=== PATIENT | male | born 1930 | race Caucasian/White ===

== ENCOUNTER 2017-11-27 09:16 | Inpatient (IN) | payer MEDICARE, OTHER ==
[~2017-11-27] VITALS: Ht 170.2 cm; Wt 88.5 kg
[2017-11-27 09:18] VITALS: BP 213/113
[2017-11-27] MEDS ORDERED: FLAXSEED1000 MG PO (09:27)
[2017-11-27] MEDS ORDERED: LASIX 20 MG TAB20 MG PO (09:28)
[2017-11-27] MEDS ORDERED: OMEPRAZOLE 20 M20 M1 PO (09:28)
[2017-11-27] MEDS ORDERED: POTASSIUM20 PO (09:28)
[2017-11-27] MEDS ORDERED: MELATONIN3 MG PO (09:28)
[2017-11-27] MEDS ORDERED: TUMS PO ×2 (09:29→09:30)
[2017-11-27] MEDS ORDERED: PROBIOTIC1 EAC1 PO (09:29)
[2017-11-27] MEDS ORDERED: TRAZODONE HCL50 MG PO (09:29)
[2017-11-27] MEDS ORDERED: NORCO 10-325 T1 EACH PO (09:31)
[2017-11-27] MEDS ORDERED: CYCLOBENZAPRINE5 MG PO (09:31)
[2017-11-27] MEDS ORDERED: IBUPROFEN 400400 M2 PO (09:31)
[2017-11-27] MEDS ORDERED: ZOFRAN ODT4 MG PO (09:32)
[2017-11-27] MEDS ORDERED: MIRALAX17 GM PO (09:32)
[2017-11-27] MEDS ORDERED: IPRAT-ALBUT 0.5-3 ML INH (09:32)
[2017-11-27] MEDS ORDERED: ROBAFEN100 MG/5 M PO (09:33)
[2017-11-27 10:09] LABS: ABSOLUTE BASOPHILS 0.1 thou/uL (0.0-0.2); ABSOLUTE MONOCYTES 0.6 thou/uL (0.0-1.2); ABSOLUTE NEUTROPHILS 9.5 thou/uL (1.6-8.1); EOSINOPHILS 0.1 %; HEMATOCRIT 40.7 % (42.0-52.0); WBC 11.3 thou/uL (4.0-11.0)
[2017-11-27 10:10] LABS: ABSOLUTE LYMPHOCYTES 1.2 thou/uL (0.8-5.3); BASOPHILS 0.6 %; HEMOGLOBIN 13.4 gm/dL (14.0-18.0); LYMPHOCYTES 10.2 %; MCH 29.4 pg (26.0-34.0); MCV 89.3 fL (80.0-100.0); MONOCYTES 5.2 %; NUCLEATED RBCS 0 /100WBC; PLATELET COUNT* 329 thou/uL (150-400); POLYS 83.9 %; RBC 4.56 mil/uL (4.50-6.00); RDW-CV 16.1 % (10.5-14.5)
[2017-11-27 10:14] LABS: ANION GAP 10 mmol/L (7-16); BUN 18 mg/dL (7-18); CALCIUM 8.6 mg/dL (8.5-10.1); CHLORIDE 103 mmol/L (98-107); CO2 27 mmol/L (21-32); CREATININE 0.7 mg/dL (0.6-1.3); GLUCOSE 138 mg/dL (70-99); POTASSIUM 3.5 mmol/L (3.5-5.1); SODIUM 140 mmol/L (136-145)
[2017-11-27 10:21] LABS: ALKALINE PHOSPHATASE 65 U/L (46-116); LIPASE 148 U/L (73-393); SGOT 19 U/L (15-37); SGPT 19 U/L (30-65); TOTAL BILIRUBIN 0.2 mg/dL (<0.1-1.0); TOTAL PROTEIN 7.2 g/dL (6.4-8.2); TROPONIN-I LEVEL <0.06 ng/mL (<0.06)
[2017-11-27 11:18] LABS: URINE BILIRUBIN NEGATIVE (Negative); URINE BLOOD NEGATIVE (Negative); URINE CLARITY CLEAR; URINE COLOR YELLOW; URINE GLUCOSE-RANDOM NEGATIVE (Negative); URINE KETONES NEGATIVE (Negative); URINE LEUKOCYTES-REFLEX NEGATIVE (Negative); URINE NITRITE-REFLEX NEGATIVE (Negative); URINE PROTEIN NEGATIVE (Negative); URINE UROBILINOGEN 0.2 E.U./dl (0.2-1.0)
[2017-11-27 12:18] LABS: BE -1.3 mmol/L (-2 to +3); HCO3 22.7 mmol/L (22.0-26.0); PO2 65.1 mmHg (75.0-100.0); pH 7.417 (7.340-7.450)
[2017-11-27 13:16] VITALS: BP 151/97
[2017-11-27 13:41] VITALS: BP 155/92
[2017-11-27 20:05] VITALS: BP 152/66
[2017-11-27 23:53] VITALS: BP 79/42
[2017-11-28 04:16] VITALS: BP 98/55
[2017-11-28 07:45] VITALS: BP 90/47
--- NOTE | 2017-11-28 12:03 | EKG ---
[facility] [address] [place] [address] ELECTROCARDIOGRAM REPORT Name: MARCO HAGAN MICHAEL Room: [address] IN [facility].#: [id number] Admission: 11/27/17 Attend Phys: Jesus Infante Discharge: Date of : 32 Report #: [id number] THIS REPORT FOR: //name// [facility] ED Test Date: 2017-11-27 Test Time: 09:56:53 Pat Name: MARCO HAGAN Department: Room: Gender: M [employer] Lab[employer]: : 1930 Requested By: Jeanna Mendieta Order Number: [id number] MD: Donovan Lan Measurements Intervals [place] Rate: 56 P: 6 IA: 187 QRS: -59 QRSD: 156 T: -17 QT: 483 QTc: 467 Interpretive Statements Sinus rhythm Atrial premature complex RBBB and LAFB Baseline wander in lead(s) V6 No previous ECG available for comparison Electronically Signed On 11-28-2017 12:03:19 CDT by Donovan Lan [email or web address] <ELECTRONICALLY SIGNED> By: Donovan Lan MD, [facility] 11/28/17 [phone] Donovan Lan MD, [facility] /EPI
[2017-11-28 16:08] VITALS: BP 103/57
[2017-11-28 20:15] VITALS: BP 96/44
[2017-11-29 04:25] VITALS: BP 122/62
[2017-11-29 08:49] VITALS: BP 131/70
[2017-11-29 16:00] VITALS: BP 136/62
[2017-11-30 00:28] VITALS: BP 125/63
[2017-11-30 01:57] VITALS: BP 125/63
[2017-11-30 04:59] LABS: HEMATOCRIT 32.8 % (42.0-52.0); MCH 29.7 pg (26.0-34.0); MCHC 33.4 g/dL (28.0-37.0); MCV 88.7 fL (80.0-100.0); MPV 7.9 fl. (7.2-11.1); RBC 3.7 mil/uL (4.50-6.00); RDW-CV 15.5 % (10.5-14.5); WBC 8.8 thou/uL (4.0-11.0)
[2017-11-30 05:15] LABS: ALBUMIN 1.7 g/dL (3.4-5.0); CALCIUM 7.6 mg/dL (8.5-10.1); CREATININE 0.6 mg/dL (0.6-1.3); MAGNESIUM 1.5 mg/dL (1.8-2.4); PHOSPHORUS* 2.3 mg/dL (2.5-4.9); TOTAL BILIRUBIN 0.3 mg/dL (<0.1-1.0); TOTAL PROTEIN 4.3 g/dL (6.4-8.2)
[2017-11-30 05:18] LABS: POTASSIUM 2.9 mmol/L (3.5-5.1)
[2017-11-30 05:20] VITALS: BP 125/63
[2017-11-30 08:45] VITALS: BP 129/65
[2017-11-30 11:56] VITALS: BP 135/67
[2017-11-30 15:07] VITALS: BP 173/67
--- NOTE | 2017-11-30 16:26 | OP ---
[address] [address] OPERATIVE REPORT Name: MARCO HAGAN Room: [address] ADM IN .R.#: [id number] Admission: 11/27/17 Attend Phys: Jesus Infante Discharge: Date of : 32 Report #: [id number] THIS REPORT FOR: //name// CC: Fab Chaney DICTATED BY: Arpit Hernandez DO DATE OF SERVICE: 11/30/2017 PREOPERATIVE DIAGNOSIS: Acute cholecystitis. POSTOPERATIVE DIAGNOSIS: Acute on chronic gangrenous cholecystitis. SURGEON: Kendal Almaraz DO. CO-SURGEON: Ho Hernandez, PGY4. BENCH SHEAR OPERATOR: Ronny Velasquez, JACKIEY2. OPERATION PERFORMED: Laparoscopic cholecystectomy. ANESTHESIA: General and local. ESTIMATED BLOOD LOSS: 10 mL. SPECIMENS REMOVED: Gallbladder and contents. COMPLICATIONS: None. CONDITION: Stable. DISPOSITION: PACU and then returned to his room on the floor. DRAIN: A 15-Syrian MARY drain in the right upper quadrant. HISTORY OF PRESENT ILLNESS: The patient is a pleasant 87-year-old male who presented to the hospital on 11/27/2017 complaining of diarrhea for the past 3 weeks along with some acute onset nausea and vomiting and some upper abdominal pain. He denies any prior episodes of this nature consistent with this upper abdominal pain and nausea and vomiting. The patient had a full workup performed, which included a CT abdomen and pelvis that showed a significantly distended gallbladder with some extensive diverticulosis without evidence of diverticulitis. There was some minimal amount of ascites in the right upper quadrant as well. The patient then had a HIDA scan performed, which showed nonvisualization of the gallbladder, which suggested the patient had a cystic [facility] [address] [place] [address] OPERATIVE REPORT Name: MARCO HAGAN Room: [address] IN ..#: [id number] Admission: 11/27/17 Attend Phys: Jesus Infante Discharge: Date of : 31 Report #: [id number] duct obstruction consistent with acute cholecystitis. There was no evidence of a common bile duct obstruction on the HIDA scan. It was at that time, we decided to recommend the patient have a laparoscopic cholecystectomy. A complete detailed description of the procedure was reviewed at length with the patient and his family. All risks, benefits, complications include but are not limited to infection, bleeding, hernias at incision sites, chronic pain or numbness at incision sites, need for an open operation, injury to surrounding structures such as common bile duct, stomach and small bowel as well as a transverse colon, anesthesia risk, another common complication associated with the procedure. The patient and his family both voiced complete understanding and they wished to proceed. DESCRIPTION OF PROCEDURE: After the appropriate consents were obtained, the patient was taken to the operating room, laid on a supine position. He had SCDs placed on his bilateral lower extremities and a safety strap placed across his lap. His right arm was tucked to the side and his left arm was placed out. A foot plate was placed in the bottom of the bed as well. All lines were placed by Anesthesia. The patient was then sedated and intubated by anesthesia without difficulty. The patient's abdomen was shaved, prepped and draped in a standard sterile fashion. A timeout was performed to correctly identify the patient and procedure. Perioperative antibiotics were given consisting of 2 grams of Ancef. We elected to start in the supraumbilical area. The patient had a large scar in his right lower abdomen from a previous open appendectomy. We then injected 0.5% Marcaine in the supraumbilical region. We made an incision using 11 blade scalpel in this area as well. We dissected down bluntly until we encountered the anterior abdominal wall fascia. The patient had very little subcutaneous fat. The fascia was grasped and elevated between 2 Rohith clamps. It was then incised using electrocautery. We placed 2 stay sutures of 0 Vicryl suture with either side of the fascia to secure our Reji trocar. We used a finger to sweep the intra-abdominal cavity to ensure there were no shahrzad-incisional adhesions and none were present. We did use a hemostat to bluntly enter the abdominal cavity prior to this. Once our sutures were in place, we inserted our Reji trocar. The Reji was then secured using these previously placed 0 Vicryl sutures. We introduced our camera into the patient's intra-abdominal cavity and he had some distention of his stomach, so we asked Anesthesia to place an OG tube, which successfully decompressed the stomach. There were notable adhesions to the gallbladder and the gallbladder was not visible because of the extensive amount of omentum that was overlying it. Our initial inspection of the other anterior abdominal organs did not display any obvious abnormalities. We then placed our subxiphoid port under direct visualization. This was a 12-mm port that was placed. Using a blunt grasper through this 12-mm port, we were able to sweep some of the omentum down and released some of the adhesions that were present. We then elected to place our 2 right lateral abdominal wall ports. These were both 5-mm trocars, which were placed under direct visualization as well. Using a blunt dissection with a blunt tip grasper and a suction lunchroom mother, we were able to bluntly remove the adherent omentum, [facility] [address] [place] [address] OPERATIVE REPORT Name: MARCO HAGAN Room: [address] ADM IN .R.#: [id number] Admission: 11/27/17 Attend Phys: Jesus Infante Discharge: Date of : 31 Report #: [id number] which was very thick in nature and inflamed. This was done so using very careful blunt dissection. Once we were able to visualize the majority of the gallbladder, we used an aspiration needle to remove some of the bile, which was within the gallbladder. This allowed us to grasp the gallbladder and elevate it. The gallbladder was then elevated anteriorly and cephalad. There were again some extensive amount of adhesions, which were present on the Jayme's pouch of the gallbladder, which were taken down using blunt dissection as well as electrocautery. With careful dissection using blunt dissection with our Maryland dissector as well as our suction lunchroom mother, we were able to slowly dissect out the cystic duct and the cystic artery. We cleaned off posteriorly as well and we were able to visualize our cystic plate. At this time, we visualized 2 structures only 2 structures going directly into the gallbladder. This allowed us to obtain our critical view. Once our critical view was obtained, we elected to place clips on the duct and the artery. We placed 2 clips proximally on the duct and one clip distally and then 2 clips proximally on the artery and one clip distally. Using laparoscopic scissors, we incised the duct and the artery. There was no oozing or bleeding from either the duct or the artery. We then continued to carefully dissect out the posterior inferior aspect of the gallbladder to ensure there were no underlying structures. There did appear to be a right hepatic artery that was present just below Jayme's pouch. This was dissected out and preserved. We then removed the gallbladder using electrocautery and blunt dissection. There was extensive amount of purulent fluid that was coming from the posterior aspect of the gallbladder as well as from along the right lateral side of the gallbladder. This was consistent with acute gangrenous cholecystitis. There was minimal bleeding that was coming from the liver bed, which was adequately controlled using electrocautery. Once the gallbladder was completely removed from the liver bed, we placed it within an EndoCatch pouch. The gallbladder was so large that it barely fit with an EndoCatch pouch. We then returned our attention back towards our cystic plate and our clips. The clips appeared to be in place and there was no oozing coming from the duct or the artery. Any bleeding that was occurring from the cystic plate was adequately controlled once again using electrocautery. We thoroughly irrigated the area and suctioned away any free fluid. Given the nature of the gallbladder and the amount of purulent fluid that was coming from it, we elected to place a 15-Syrian MARY drain. We placed this drain in the subhepatic space and then ran along Chadwick's pouch. We pulled it out through the most lateral right-sided abdominal wall trocar site. We then returned the patient to a neutral position and suctioned away any remaining fluid that was present. We returned the omentum to its correct anatomical position and sutured our drain in the place. It was at this time, we removed our trocars under direct visualization. We desufflated the abdomen to ensure there was no bleeding and none was present. We then removed our camera and Reji trocar. We had to extend our fascial incision within a supraumbilical site to extract the gallbladder. The gallbladder was very large in nature and was very distended with large stone within it. It was passed off as specimen and sent to pathology for further evaluation. We then placed [address] [address] OPERATIVE REPORT Name: MARCO HAGAN Room: [address] IN [facility]#: [id number] Admission: 11/27/17 Attend Phys: Jesus Infante Discharge: Date of : 31 Report #: [id number] multiple hqtryz-lw-ieexi sutures within the fascia, which was reapproximated at the supraumbilical site. After we achieved good approximation of the fascia, we injected it using 0.5% Marcaine. Our drain, which was previously sutured into place with a 2-0 nylon suture, was hooked up to the bulb. We then closed the skin on each of the incision sites using 4-0 Monocryl in an inverted interrupted fashion. The supraumbilical incision was closed using the same 4-0 Monocryl suture in a subcuticular running fashion. Each of the incision sites were injected using 0.5% Marcaine. The patient's abdomen was cleaned and dried adequately and then Mastisol, Steri-Strips, and gauze as well as sterile Tegaderm Op-Site were placed on each of the incisions. There was a drain sponge as well as a Tegaderm placed over the drain. The drapes were removed and the patient was allowed to awaken within the operating room. He was subsequently extubated and will be transferred to the PACU for further recovery. All counts were correct x 2 at the end of the procedure. The patient tolerated the procedure well and then once he is recovered from the PACU, will be allowed to return to the floor for further observation. Dr. Almaraz was present and scrubbed for the entirety of this procedure. <ELECTRONICALLY SIGNED> By: Kendal Almaraz DO 11/30/17 1626 1421 1456Cguerline Almaraz DO /nt
[2017-12-01 01:01] VITALS: BP 132/71
[2017-12-01 04:15] VITALS: BP 121/59
[2017-12-01 06:15] LABS: HEMATOCRIT 33.4 % (42.0-52.0); MCH 29.6 pg (26.0-34.0); MCV 89.7 fL (80.0-100.0); MPV 8.1 fl. (7.2-11.1); RBC 3.73 mil/uL (4.50-6.00); RDW-CV 15.6 % (10.5-14.5)
[2017-12-01 06:34] LABS: ALBUMIN 1.6 g/dL (3.4-5.0); CALCIUM 7.4 mg/dL (8.5-10.1); CREATININE 0.6 mg/dL (0.6-1.3); POTASSIUM 4.2 mmol/L (3.5-5.1); TOTAL BILIRUBIN 0.2 mg/dL (<0.1-1.0); TOTAL PROTEIN 4.6 g/dL (6.4-8.2)
[2017-12-01 07:05] LABS: URINE BILIRUBIN NEGATIVE (Negative); URINE BLOOD 2+ (Negative); URINE CLARITY CLEAR; URINE COLOR YELLOW; URINE GLUCOSE-RANDOM NEGATIVE (Negative); URINE KETONES 1+ (Negative); URINE LEUKOCYTES-REFLEX NEGATIVE (Negative); URINE NITRITE-REFLEX NEGATIVE (Negative); URINE PROTEIN TRACE (Negative); URINE SPECIFIC GRAVITY 1.015 (1.005-1.030); URINE UROBILINOGEN 0.2 E.U./dl (0.2-1.0)
[2017-12-01 07:15] LABS: BACTERIA-REFLEX 1-9 Few /HPF (None Seen); CASTS None Seen /LPF (None Seen); CRYSTALS None Seen /LPF (None Seen); MUCUS 0-3 Light strn/LPF (None Seen); SQUAMOUS 0-3 Few /LPF (0-3); URINE RBC 3-10 Few /HPF (0-2); URINE WBC-REFLEX 0-5 Rare /HPF (0-5)
[2017-12-01 08:30] VITALS: BP 160/85
--- NOTE | 2017-12-01 16:41 | CON ---
[address] [address] CONSULTATION Name: MARCO HAGAN Room: [address] IN .R.#: [id number] Admission: 11/27/17 Attend Phys: Jesus Infante Discharge: Date of : 31 Report #: [id number] THIS REPORT FOR: //name// CC: Fab Chaney DO DATE OF SERVICE: 11/27/2017 REQUESTING PHYSICIAN: Bradley Chaney DO REASON FOR CONSULT: Abdominal pain and dyspepsia. HISTORY OF PRESENT ILLNESS: This is an 87-year-old male who presented to hospital with abdominal pain and diarrhea, which have been going on for the past 3 weeks. Also, reports having nausea and vomiting. Since admission, he had liver enzymes, which were normal. He also had a CT suggestive of distended gallbladder. He denies hematochezia, melena, and hematemesis. PAST MEDICAL HISTORY: Significant for history of hypertension, COPD, GERD, insomnia, spinal stenosis, carpal tunnel surgery, and constipation. ALLERGIES: No known drug allergy. MEDICATIONS: Please refer to [facility]. SOCIAL HISTORY: The patient is and lives at home. Denies tobacco or alcohol use. PHYSICAL EXAMINATION: VITAL SIGNS: Reveals blood pressure of 155/92, respirations 20, pulse 116, and temperature 99.1. LUNGS: Clear. CARDIOVASCULAR: Regular. ABDOMEN: Soft, tender to palpation in the right upper quadrant. Bowel sounds are positive. NEUROLOGIC: The patient is alert and oriented x3. LABS: Reveal sodium of 140, potassium 3.5, BUN is 18, creatinine 0.7, glucose is 138, AST is 19, ALT 19, alk phos 65, total bili is 0.2, and albumin 3.0. Lactic acid is 2.1. WBCs 11.3 with hemoglobin of 13. CT of abdomen and pelvis was obtained, which showed mild left lower lobe infiltrate and evidence of extensive colonic diverticulosis [place] [address] CONSULTATION Name: MARCO HAGAN Room: [address] IN ..#: [id number] Admission: 11/27/17 Attend Phys: Jesus Infante Discharge: Date of : 31 Report #: [id number] of diverticulitis. The gallbladder appears distended. ASSESSMENT AND PLAN: Since the patient has a distended gallbladder and right upper quadrant abdominal pain with normal LFTs, we will order a CCK-PIPIDA scan. If this was negative, I will perform an upper scope. <ELECTRONICALLY SIGNED> By: Jesus Oakley MD 12/01/17 1641 1556 1659Farjavier Oakley MD /nt
[2017-12-01 17:49] VITALS: BP 153/82
[2017-12-01 20:15] VITALS: BP 150/77
[2017-12-02 08:30] VITALS: BP 160/75
[2017-12-02] MEDS ORDERED: FLOMAX0.4 MG PO (10:14)
[2017-12-02] MEDS ORDERED: NORCO 5-325 TA1 EACH PO (10:51)
[2017-12-02] MEDS ORDERED: COLACE100 MG PO (10:56)
[2017-12-02 11:04] VITALS: BP 160/75
[2017-12-02 15:27] VITALS: BP 137/58
--- NOTE | 2017-12-07 07:49 | PATH ---
[address] [address] PATHOLOGY RPT PROCEDURE Name: MARCO HAGAN Room: [facility] IN M.R.#: [id number] Admission: 11/27/17 Date of : 31 Discharge: 12/02/17 Report #: [id number] Path Case #: [id number] [facility] Accession Number: [id number] . 01 Material submitted: . GALLBLADDER AND CONTENTS . 01 Clinical history: . Acute cholecystitis . 02 Diagnosis: Gallbladder "gallbladder and contents, cholecystectomy": - Acute cholecystitis with extensive mucosal necrosis and with acute inflammation forming microabscesses. - The attached liver is unremarkable. - Cholelithiasis. . (SHA:karin; 12/02/17) M/12/02/2017 . 02 Electronically signed: . Cb Dobson MD, Pathologist NPI- [id number] . 01 Gross description: . Received in formalin labeled "Marco Hagan gallbladder w/ contents," is a gallbladder measuring 9.9 x 6.2 x 3.2 cm in greatest dimensions. The serosal surface is roughened and quiroz-brown in appearance, with a poorly circumscribed area of thickened, pale green-quiroz possible necrosis on the hepatic surface. Opening the specimen reveals a shaggy, dark quiroz mucosal surface with an average wall thickness of 0.1 cm. Multiple patches of soft, green discoloration are noted on the mucosal surface that grossly appear to extend through the muscularis to the hepatic surface. A single calculus is present that is ovoid, smooth and dark yellow-brown in appearance, measuring 1.7 cm in maximum dimension. [employer] sections of the infundibulum, body and fundus are submitted in cassette A1, and additional players club representative sections of the possible necrosis are submitted in cassette A2. (DAC; 12/01/2017) XDC/XDC . 02 Pathologist provided ICD-10: K80.00 . 02 CPT . 628823 Performed at: [address] [place] [address] PATHOLOGY RPT PROCEDURE Name: MARCO HAGAN MICHAEL Room: [address] IN M.R.#: [id number] Admission: 11/27/17 Date of : 31 Discharge: 12/02/17 Report #: [id number] Path Case #: [id number] [address] [place] [address] [address], [place], [place] [id number] MD Sarath Alvarado MD Phone: [phone] Performed at: [address] [address] [address], [place], [place] [id number] MD Ollie Nevarez MD Phone: [phone]
== END 2017-12-02 16:30 | disposition home health service (06) | DRG 853 ==
LOC: M.ERS 09:16 → M.ORTHSURG 12:16 → M.TBA-ER 12:16 → M.ORTHSURG 12:59
PROVIDERS: Personal Emergency Response Attendant; Surgery; ADMIT Internal Medicine
PROC: 0FT44ZZ Resection of Gallbladder, Percutaneous Endoscopic Approach (ICD-10-PCS; principal; 2017-11-30)
DX: A41.9 Sepsis, unspecified organism (principal); E43 Unspecified severe protein-calorie malnutrition; J69.0 Pneumonitis due to inhalation of food and vomit; K81.0 Acute cholecystitis; I10 Essential (primary) hypertension; J44.9 Chronic obstructive pulmonary disease, unspecified; K59.00 Constipation, unspecified; K21.9 Gastro-esophageal reflux disease without esophagitis; G47.00 Insomnia, unspecified; K83.8 Other specified diseases of biliary tract; E87.6 Hypokalemia; E83.39 Other disorders of phosphorus metabolism; E83.42 Hypomagnesemia; K81.1 Chronic cholecystitis; R33.9 Retention of urine, unspecified; Z68.30 Body mass index [BMI] 30.0-30.9, adult; Z79.899 Other long term (current) drug therapy; Z90.49 Acquired absence of other specified parts of digestive tract; Z87.891 Personal history of nicotine dependence

== ENCOUNTER 2018-12-29 00:01 | Emergency (ER) | payer MEDICARE, OTHER ==
[~2018-12-29] VITALS: Ht 172.7 cm; Wt 91.2 kg
[~2018-12-29 00:01] MED LIST: COLACE100 MG PO; CYCLOBENZAPRINE5 MG PO; FLAXSEED1000 MG PO; FLOMAX0.4 MG PO; IBUPROFEN 400400 M2 PO; IPRAT-ALBUT 0.5-3 ML INH; LASIX 20 MG TAB20 MG PO; MELATONIN3 MG PO; MIRALAX17 GM PO; NORCO 10-325 T1 EACH PO; NORCO 5-325 TA1 EACH PO; OMEPRAZOLE 20 M20 M1 PO; POTASSIUM20 PO; PROBIOTIC1 EAC1 PO; ROBAFEN100 MG/5 M PO; TRAZODONE HCL50 MG PO; TUMS PO; ZOFRAN ODT4 MG PO
[2018-12-29] MEDS ORDERED: CHOLESTYRAMINE P4 GM (00:07)
[2018-12-29] MEDS ORDERED: LOPERAMIDE 2 MG2 M1 (00:07)
[2018-12-29 00:32] LABS: ABSOLUTE BASOPHILS 0.1 thou/uL (0.0-0.2); ABSOLUTE EOSINOPHILS 0.1 thou/uL (0.0-0.7); ABSOLUTE LYMPHOCYTES 0.5 thou/uL (0.8-5.3); ABSOLUTE MONOCYTES 0.7 thou/uL (0.0-1.2); ABSOLUTE NEUTROPHILS 7.7 thou/uL (1.6-8.1); BASOPHILS 0.6 %; EOSINOPHILS 0.6 %; HEMATOCRIT 40.6 % (42.0-52.0); HEMOGLOBIN 13.6 gm/dL (14.0-18.0); LYMPHOCYTES 5.9 %; MCH 30.8 pg (26.0-34.0); MCHC 33.4 g/dL (28.0-37.0); MCV 92.2 fL (80.0-100.0); MONOCYTES 8.1 %; MPV 8.8 fl. (7.2-11.1); NUCLEATED RBCS 0 /100WBC; PLATELET COUNT* 136 thou/uL (150-400); POLYS 84.8 %; RBC 4.41 mil/uL (4.50-6.00); RDW-CV 13.9 % (10.5-14.5); WBC 9.1 thou/uL (4.0-11.0)
[2018-12-29 00:40] LABS: CALCIUM 8.5 mg/dL (8.5-10.1); CREATININE 0.9 mg/dL (0.6-1.3); POTASSIUM 3.6 mmol/L (3.5-5.1)
[2018-12-29 00:45] LABS: ALBUMIN 3.1 g/dL (3.4-5.0); TOTAL BILIRUBIN 1.2 mg/dL (<0.1-1.0); TOTAL PROTEIN 6.8 g/dL (6.4-8.2)
[2018-12-29 02:00] LABS: URINE BILIRUBIN NEGATIVE (Negative); URINE BLOOD NEGATIVE (Negative); URINE CLARITY CLEAR; URINE COLOR YELLOW; URINE GLUCOSE-RANDOM NEGATIVE (Negative); URINE KETONES NEGATIVE (Negative); URINE LEUKOCYTES-REFLEX TRACE (Negative); URINE NITRITE-REFLEX NEGATIVE (Negative); URINE PROTEIN TRACE (Negative); URINE UROBILINOGEN 0.2 E.U./dl (0.2-1.0)
[2018-12-29 02:09] LABS: BACTERIA-REFLEX >30 Many /HPF (None Seen); COARSE GRANULAR CASTS 0-3 Few /LPF (None Seen); CRYSTALS None Seen /LPF (None Seen); FINE GRANULAR CASTS 0-3 Few /LPF (None Seen); MUCUS 0-3 Light strn/LPF (None Seen); SQUAMOUS 0-3 Few /LPF (0-3); URINE RBC 3-10 Few /HPF (0-2); URINE WBC-REFLEX >25 Many /HPF (0-5); WBC CLUMPS Moderate (None Seen)
[2018-12-29] MEDS ORDERED: AUGMENTIN 500-1 EACH PO (02:26)
[2018-12-29] MEDS ORDERED: HYDROCODON-ACE1 EAC7 PO (02:26)
[2018-12-29 03:05] VITALS: BP 164/71
== END 2018-12-29 03:05 | disposition home or self-care (01) ==
LOC: M.ERS 00:01
PROVIDERS: Personal Emergency Response Attendant
DX: S00.83XA Contusion of other part of head, initial encounter (principal); G89.29 Other chronic pain; M25.551 Pain in right hip; N39.0 Urinary tract infection, site not specified; I10 Essential (primary) hypertension; J44.9 Chronic obstructive pulmonary disease, unspecified; K21.9 Gastro-esophageal reflux disease without esophagitis; G47.00 Insomnia, unspecified; M48.00 Spinal stenosis, site unspecified; W08.XXXA Fall from other furniture, initial encounter; Y93.89 Activity, other specified; Y92.89 Other specified places as the place of occurrence of the external cause; Y99.8 Other external cause status